=== PATIENT | male | born 1965 | race Caucasian/White ===

== ENCOUNTER 2020-09-25 17:51 | Inpatient (IN) | payer MEDICAID ==
[~2020-09-25] VITALS: Ht 167.6 cm; Wt 52.6 kg
[~2020-09-25 17:51] MED LIST: ASPI-394 PO; ATOR20TA50 PO; CAR3125T PO; CLO01T PO; FURO40TA4 PO; HYDR-531 PO; LORA-205 PO; MET50T PO; SACU1TAB PO
[2020-09-25] MEDS ORDERED: ASPirin 81 mg TAB PO ONE (18:15)
[2020-09-25 18:53] LABS: Basophils # (auto) 0 10 ^3/uL (0-0.2); Basophils % (auto) 0.5 % (0.0-2.0); Eosinophils # (auto) 0 10 ^3/uL (0-0.8); Eosinophils % (auto) 0.2 % (0.0-7.0); Hematocrit 31.5 % (41.0-53.0); Hemoglobin 10.6 g/dL (13.5-17.5); Lymphocytes # (auto) 1.4 10 ^3/uL (0.4-5.4); Lymphocytes % (auto) 14.4 % (10.0-50.0); Mean Corpuscular Hemoglobin 30.3 pg (28.0-32.0); Mean Corpuscular Hgb Conc. 33.6 g/dL (32.0-36.0); Monocytes % (auto) 10.5 % (0.0-12.0); Neutrophils # (auto) 7.3 10 ^3/uL (1.6-8.6); Neutrophils % (auto) 74.4 % (37.0-80.0); Nucleated Red Blood Cells % 0.2 %; Platelet Count (auto) 321 10^3/uL (140-450); Red Cell Distribution Width 18.2 % (11.8-14.3); White Blood Cell 9.9 10^3/uL (4.4-10.8)
[2020-09-25 19:23] LABS: Albumin 3.2 g/dL (3.4-5.0); Calcium 9.2 mg/dL (8.5-10.1); Potassium 4.7 mmol/L (3.5-5.1)
[2020-09-25 19:29] LABS: BUN/Creatinine Ratio 42.3; Bilirubin, Total 2.3 mg/dL (0.2-1.0); Total Protein 7.2 g/dL (6.4-8.2)
[2020-09-25] MEDS ORDERED: AZITHROMYCIN 500MG/ 250ML 250 ML IV ONE (21:30)
[2020-09-25] MEDS ORDERED: NITROGLYCERIN 0.4 MG SL TAB SL PRN (21:30)
[2020-09-25] MEDS ORDERED: MORPHINE SULF INJ 2 MG/ML SYRINGE 1ML IV PRN (21:30)
[2020-09-25] MEDS ORDERED: ONDANSETRON HCL 4 MG/2 ML VIAL IV PRN (21:30)
[2020-09-25] MEDS ORDERED: METOPROLOL TARTRATE 50 MG TAB PO SCH (22:00)
[2020-09-25] MEDS: FAMOTIDINE 20 MG TAB PO SCH (23:00)
[2020-09-25] MEDS ORDERED: FUROSEMIDE 20 MG/2 ML VIAL IV ONE (23:15)
[2020-09-25] MEDS: TEMAZEPAM 15 MG CAP PO PRN (23:36)
[2020-09-25] MEDS: SACUBITRIL-VALSARTAN 24mg/26mg TAB PO SCH (23:36)
[2020-09-25] MEDS: CARVEDILOL 3.125 MG TAB PO SCH (23:38)
[2020-09-25] MEDS: ATORVASTATIN 20 MG TAB PO SCH (23:38)
[2020-09-26] VITALS (88 sets, daily range): BP systolic 90–145; BP diastolic 55–94
[2020-09-26] MEDS ORDERED: cefTRIAXone 1GM/50ML D5W 50 ML IV ONE
[2020-09-26] MEDS ORDERED: NOREPINEPHRINE 8 MG/250ML KIT 250 ML IV ONE (00:29)
[2020-09-26] MEDS ORDERED: MIDAZOLAM DRIP 50 mg/50mL 50 ML IV ONE (00:29)
[2020-09-26] MEDS ORDERED: HEPARIN SODIUM (PORCINE) 5000 UNITS/ML 1ML VIAL IV ONE (00:45)
[2020-09-26] MEDS ORDERED: HEPARIN DRIP/D5W 100UNITS/ML 250 ML IV SCH (00:45)
[2020-09-26] MEDS: NOREPINEPHRINE 8 MG/250ML KIT 250 ML IV SCH (00:50)
[2020-09-26] MEDS: MIDAZOLAM DRIP 50 mg/50mL 50 ML IV SCH ×2 (00:58→20:38)
[2020-09-26 01:10] LABS: Mean Corpuscular Hemoglobin 29.3 pg (28.0-32.0)
[2020-09-26 01:12] LABS: Hematocrit 35.2 % (41.0-53.0); Hemoglobin 10.8 g/dL (13.5-17.5); Mean Corpuscular Hgb Conc. 30.7 g/dL (32.0-36.0); Mean Corpuscular Volume 95.4 fL (80.0-100.0); Platelet Count (auto) 315 10^3/uL (140-450); Red Blood Cells 3.69 10^6/uL (4.5-5.90); Red Cell Distribution Width 18.4 % (11.8-14.3); White Blood Cell 10.2 10^3/uL (4.4-10.8)
[2020-09-26 01:24] LABS: Basophils % (manual) 0 (0.0-2.0); Blast Cells 0; Eosinophils % (manual) 0 (0-7); Metamyelocytes % 0; Promyelocytes % 0; Reactive Lymphocytes 0
[2020-09-26 01:29] LABS: INR 2.79 (0.9-1.15); Partial Thromboplastin Time 33.5 sec (23.0-31.2)
[2020-09-26] MEDS: DOPamine 1600MCG/ML D5W 250 ML IV SCH (01:34)
[2020-09-26 03:42] LABS: Band Neutrophils % (manual) 8; Lymphocytes % (manual) 22 (10.0-50.0); Monocytes % (manual) 8 (0-12); Myelocytes % 1
[2020-09-26] MEDS: FUROSEMIDE 20 MG/2 ML VIAL IV SCH ×2 (05:57→17:45)
[2020-09-26 06:35] LABS: Potassium 3.5 mmol/L (3.5-5.1)
[2020-09-26 06:42] LABS: Albumin 3.1 g/dL (3.4-5.0); BUN/Creatinine Ratio 43.5; Bilirubin, Total 1.8 mg/dL (0.2-1.0); Calcium 8.7 mg/dL (8.5-10.1); Total Protein 7.3 g/dL (6.4-8.2)
[2020-09-26] MEDS: EPTIFIBATIDE DRIP(0.75MG/ML) 100 ML IV SCH ×2 (07:34→15:22)
[2020-09-26] MEDS ORDERED: APIX5TAB PO (07:59)
[2020-09-26] MEDS ORDERED: CARV3.1240 PO (07:59)
[2020-09-26] MEDS ORDERED: GABA300C10 PO (07:59)
[2020-09-26] MEDS ORDERED: POTA1080 PO (07:59)
[2020-09-26] MEDS: FAMOTIDINE 20 MG TAB PO SCH ×2 (10:00→22:00)
[2020-09-26] MEDS: CARVEDILOL 3.125 MG TAB PO SCH ×2 (10:00→22:00)
[2020-09-26] MEDS: SACUBITRIL-VALSARTAN 24mg/26mg TAB PO SCH ×2 (10:00→22:00)
[2020-09-26] MEDS ORDERED: ENOXAPARIN SOD 40 MG/0.4 ML SYRINGE SC SCH (10:00)
[2020-09-26 11:08] LABS: INR 2.02 (0.9-1.15); Partial Thromboplastin Time 35.6 sec (23.0-31.2)
[2020-09-26] MEDS ORDERED: EPINEPHrine HCL 1 MG/10 ML SYRG IV ONE (12:08)
[2020-09-26] MEDS ORDERED: SODIUM BICARBONATE 8.4% INJ 50ML SYRINGE IV ONE (12:08)
[2020-09-26] MEDS: POTASSIUM CHL 20MEQ/100ML 100 ML IV SCH ×2 (13:48→15:51)
[2020-09-26] MEDS ORDERED: DOXYCYCLINE 100MG/250ML 250 ML IV SCH (15:30)
[2020-09-26 18:10] LABS: Alcohol, Urine < 3.0 mg/dL (0-10); Amphetamine Screen, Urine NEGATIVE (NEGATIVE); Barbiturate Scree,Urine NEGATIVE (NEGATIVE); Benzodiazephine Screen, Urine POSITIVE (NEGATIVE); Cannabinoid Screen, Urine NEGATIVE (NEGATIVE); Cocaine Screen, Urine NEGATIVE (NEGATIVE); Phencyclidine Screen, Urine NEGATIVE (NEGATIVE)
[2020-09-26 18:18] LABS: Opiate Scree,Urine NEGATIVE (NEGATIVE)
[2020-09-26 18:34] LABS: Urine Bacteria FEW /hpf (None Seen); Urine Blood Negative /uL (Negative); Urine Hyaline Cast FEW /lpf (0 - 2); Urine Specific Gravity 1.016 (1.001-1.035); Urine Sperm PRESENT /hpf (None Seen); Urine WBC 4 /hpf (0 - 3)
[2020-09-26] MEDS: cefTRIAXone 1GM/50ML D5W 50 ML IV SCH (20:40)
[2020-09-26] MEDS: ATORVASTATIN 20 MG TAB PO SCH (22:00)
[2020-09-26] MEDS ORDERED: AZITHROMYCIN 500MG/ 250ML 250 ML IV SCH (22:00)
[2020-09-26] MEDS: ASPirin 81 mg TAB PO SCH (22:30)
[2020-09-26] MEDS: DOXYCYCLINE 100MG/250ML 250 ML IV SCH (22:30)
[2020-09-27] VITALS (96 sets, daily range): BP systolic 83–118; BP diastolic 58–88
[2020-09-27] MEDS: DOPamine 1600MCG/ML D5W 250 ML IV SCH ×2 (00:07→22:44)
[2020-09-27] MEDS: MIDAZOLAM DRIP 50 mg/50mL 50 ML IV SCH ×3 (00:30→22:21)
[2020-09-27] MEDS: NOREPINEPHRINE 8 MG/250ML KIT 250 ML IV SCH (00:45)
[2020-09-27 04:22] LABS: Basophils # (auto) 0.1 10 ^3/uL (0-0.2); Basophils % (auto) 0.4 % (0.0-2.0); Eosinophils # (auto) 0.1 10 ^3/uL (0-0.8); Eosinophils % (auto) 0.6 % (0.0-7.0); Hematocrit 35.9 % (41.0-53.0); Hemoglobin 11.8 g/dL (13.5-17.5); Lymphocytes # (auto) 0.8 10 ^3/uL (0.4-5.4); Lymphocytes % (auto) 6.5 % (10.0-50.0); Mean Corpuscular Hemoglobin 29.3 pg (28.0-32.0); Mean Corpuscular Hgb Conc. 32.8 g/dL (32.0-36.0); Mean Corpuscular Volume 89.3 fL (80.0-100.0); Monocytes # (auto) 1.3 10 ^3/uL (0-1.3); Monocytes % (auto) 10.8 % (0.0-12.0); Neutrophils # (auto) 10.1 10 ^3/uL (1.6-8.6); Neutrophils % (auto) 81.7 % (37.0-80.0); Platelet Count (auto) 345 10^3/uL (140-450); Red Blood Cells 4.02 10^6/uL (4.5-5.90); Red Cell Distribution Width 18.4 % (11.8-14.3); White Blood Cell 12.4 10^3/uL (4.4-10.8)
[2020-09-27 04:45] LABS: Potassium 3.5 mmol/L (3.5-5.1)
[2020-09-27 04:51] LABS: Albumin 2.5 g/dL (3.4-5.0); BUN/Creatinine Ratio 41.1; Bilirubin, Total 1.6 mg/dL (0.2-1.0); Calcium 8.3 mg/dL (8.5-10.1); Total Protein 6.4 g/dL (6.4-8.2)
[2020-09-27] MEDS: FUROSEMIDE 20 MG/2 ML VIAL IV SCH ×2 (06:06→18:00)
[2020-09-27] MEDS ORDERED: IODIXANOL 320MG/ML 100ML BTL IV ONE (08:09)
[2020-09-27] MEDS: DOXYCYCLINE 100MG/250ML 250 ML IV SCH ×2 (10:00→22:11)
[2020-09-27] MEDS: CARVEDILOL 3.125 MG TAB PO SCH ×2 (10:00→22:00)
[2020-09-27] MEDS: FAMOTIDINE 20 MG TAB PO SCH ×2 (10:45→22:12)
[2020-09-27] MEDS: SACUBITRIL-VALSARTAN 24mg/26mg TAB PO SCH ×2 (10:45→22:00)
[2020-09-27] MEDS ORDERED: LIDOCAINE 2%HCL (LOCAL ANESTH.) INJ 20ML MDV ONE (12:06)
[2020-09-27] MEDS ORDERED: IOHEXOL 350 MG/ML 100ML IJ ONE (12:06)
[2020-09-27] MEDS ORDERED: SODIUM CHL 0.9% 0 ML ONE (12:25)
[2020-09-27] MEDS ORDERED: ANGIOMAX 250 MG VIAL IV ONE (12:25)
[2020-09-27] MEDS: fentaNYL Drip 2500mCg/250mlNS 250 ML IV SCH (21:15)
[2020-09-27] MEDS: cefTRIAXone 1GM/50ML D5W 50 ML IV SCH (21:25)
[2020-09-27] MEDS: ASPirin 81 mg TAB PO SCH (22:11)
[2020-09-27] MEDS: ATORVASTATIN 20 MG TAB PO SCH (22:12)
[2020-09-28] VITALS (85 sets, daily range): BP systolic 66–182; BP diastolic 41–104
[2020-09-28] MEDS: NOREPINEPHRINE 8 MG/250ML KIT 250 ML IV SCH (00:45)
[2020-09-28] MEDS: MIDAZOLAM DRIP 50 mg/50mL 50 ML IV SCH (03:15)
[2020-09-28 04:09] LABS: Basophils # (auto) 0.1 10 ^3/uL (0-0.2); Basophils % (auto) 0.8 % (0.0-2.0); Eosinophils # (auto) 0.1 10 ^3/uL (0-0.8); Eosinophils % (auto) 1.1 % (0.0-7.0); Hemoglobin 13.5 g/dL (13.5-17.5); Mean Corpuscular Hemoglobin 29.4 pg (28.0-32.0); Mean Corpuscular Hgb Conc. 32.9 g/dL (32.0-36.0); Mean Corpuscular Volume 89.4 fL (80.0-100.0); Monocytes # (auto) 1.4 10 ^3/uL (0-1.3); Monocytes % (auto) 11.1 % (0.0-12.0); Neutrophils # (auto) 10.3 10 ^3/uL (1.6-8.6); Platelet Count (auto) 400 10^3/uL (140-450); Red Blood Cells 4.59 10^6/uL (4.5-5.90); Red Cell Distribution Width 18.3 % (11.8-14.3)
[2020-09-28 04:24] LABS: Albumin 2.5 g/dL (3.4-5.0); Calcium 8.3 mg/dL (8.5-10.1); Potassium 3.4 mmol/L (3.5-5.1)
[2020-09-28 04:27] LABS: BUN/Creatinine Ratio 35.4; Bilirubin, Total 1.2 mg/dL (0.2-1.0); Total Protein 6.8 g/dL (6.4-8.2)
[2020-09-28] MEDS: FUROSEMIDE 20 MG/2 ML VIAL IV SCH ×2 (06:05→17:50)
[2020-09-28 09:07] LABS: INR 1.17 (0.9-1.15); Partial Thromboplastin Time 26.2 sec (23.0-31.2)
[2020-09-28] MEDS: POTASSIUM CHL 20MEQ/100ML 100 ML IV SCH ×2 (09:09→11:18)
[2020-09-28] MEDS: FAMOTIDINE 20 MG TAB PO SCH ×2 (10:00→21:58)
[2020-09-28] MEDS: SACUBITRIL-VALSARTAN 24mg/26mg TAB PO SCH ×2 (10:00→21:58)
[2020-09-28] MEDS: CARVEDILOL 3.125 MG TAB PO SCH ×2 (10:00→21:57)
[2020-09-28] MEDS: DOXYCYCLINE 100MG/250ML 250 ML IV SCH ×2 (11:30→22:44)
[2020-09-28] MEDS ORDERED: LIDOCAINE 2%HCL (LOCAL ANESTH.) INJ 20ML MDV ONE (13:33)
[2020-09-28] MEDS ORDERED: IOHEXOL 350 MG/ML 100ML IJ ONE (13:33)
[2020-09-28] MEDS ORDERED: VANCOMYCIN HCL 1000 MG VL ONE (14:33)
[2020-09-28] MEDS ORDERED: VANCOMYCIN 1GM/250ML 250 ML IV ONE (14:33)
[2020-09-28] MEDS: fentaNYL Drip 2500mCg/250mlNS 250 ML IV SCH (21:00)
[2020-09-28] MEDS: cefTRIAXone 1GM/50ML D5W 50 ML IV SCH (21:55)
[2020-09-28] MEDS: AMIODARONE HCL 200 MG TAB PO SCH (21:57)
[2020-09-28] MEDS: ATORVASTATIN 20 MG TAB PO SCH (21:58)
[2020-09-29] VITALS (86 sets, daily range): BP systolic 74–124; BP diastolic 45–87
[2020-09-29] MEDS: MIDAZOLAM DRIP 50 mg/50mL 50 ML IV SCH ×3 (00:38→21:18)
[2020-09-29] MEDS: FUROSEMIDE 20 MG/2 ML VIAL IV SCH ×2 (06:13→20:30)
[2020-09-29] MEDS: AMIODARONE HCL 200 MG TAB PO SCH ×2 (10:00→21:14)
[2020-09-29] MEDS: DOXYCYCLINE 100MG/250ML 250 ML IV SCH ×2 (10:44→22:27)
[2020-09-29] MEDS: CARVEDILOL 3.125 MG TAB PO SCH ×2 (10:45→21:15)
[2020-09-29] MEDS: FAMOTIDINE 20 MG TAB PO SCH ×2 (10:46→21:16)
[2020-09-29] MEDS: ENOXAPARIN SOD 40 MG/0.4 ML SYRINGE SC SCH (10:46)
[2020-09-29] MEDS: SACUBITRIL-VALSARTAN 24mg/26mg TAB PO SCH ×2 (10:46→21:15)
[2020-09-29] MEDS: ACETAMINOPHEN 325 MG TAB PO PRN (16:56)
[2020-09-29] MEDS: fentaNYL Drip 2500mCg/250mlNS 250 ML IV SCH (21:00)
[2020-09-29] MEDS: cefTRIAXone 1GM/50ML D5W 50 ML IV SCH (21:14)
[2020-09-29] MEDS: ATORVASTATIN 20 MG TAB PO SCH (21:15)
[2020-09-30] VITALS (102 sets, daily range): BP systolic 80–132; BP diastolic 39–98
[2020-09-30] MEDS: MIDAZOLAM DRIP 50 mg/50mL 50 ML IV SCH (00:30)
[2020-09-30] MEDS: NOREPINEPHRINE 8 MG/250ML KIT 250 ML IV SCH ×2 (02:09→11:04)
[2020-09-30] MEDS: FUROSEMIDE 20 MG/2 ML VIAL IV SCH ×2 (06:27→18:29)
[2020-09-30] MEDS: ENOXAPARIN SOD 40 MG/0.4 ML SYRINGE SC SCH (08:58)
[2020-09-30] MEDS: SACUBITRIL-VALSARTAN 24mg/26mg TAB PO SCH ×2 (08:58→22:00)
[2020-09-30] MEDS: ACETAMINOPHEN 325 MG TAB PO PRN (08:59)
[2020-09-30] MEDS: CARVEDILOL 3.125 MG TAB PO SCH ×2 (09:01→23:00)
[2020-09-30] MEDS: FAMOTIDINE 20 MG TAB PO SCH ×2 (09:01→22:00)
[2020-09-30] MEDS: AMIODARONE HCL 200 MG TAB PO SCH ×2 (09:04→23:00)
[2020-09-30] MEDS: DOXYCYCLINE 100MG/250ML 250 ML IV SCH ×2 (09:04→22:00)
[2020-09-30 09:13] LABS: Basophils # (auto) 0.1 10 ^3/uL (0-0.2); Basophils % (auto) 0.9 % (0.0-2.0); Eosinophils # (auto) 0.3 10 ^3/uL (0-0.8); Eosinophils % (auto) 2.9 % (0.0-7.0); Hematocrit 37.8 % (41.0-53.0); Hemoglobin 12.1 g/dL (13.5-17.5); Lymphocytes # (auto) 0.7 10 ^3/uL (0.4-5.4); Lymphocytes % (auto) 6.1 % (10.0-50.0); Mean Corpuscular Hemoglobin 28.5 pg (28.0-32.0); Mean Corpuscular Hgb Conc. 31.9 g/dL (32.0-36.0); Mean Corpuscular Volume 89.4 fL (80.0-100.0); Monocytes # (auto) 1.2 10 ^3/uL (0-1.3); Monocytes % (auto) 10.4 % (0.0-12.0); Neutrophils # (auto) 9.5 10 ^3/uL (1.6-8.6); Neutrophils % (auto) 79.7 % (37.0-80.0); Nucleated Red Blood Cells % 0.1 %; Platelet Count (auto) 371 10^3/uL (140-450); Red Blood Cells 4.23 10^6/uL (4.5-5.90); Red Cell Distribution Width 18.4 % (11.8-14.3)
[2020-09-30 09:14] LABS: Albumin 2.4 g/dL (3.4-5.0); Calcium 8.3 mg/dL (8.5-10.1); Magnesium 1.6 mg/dL (1.6-2.6); Potassium 3.9 mmol/L (3.5-5.1)
[2020-09-30 09:17] LABS: BUN/Creatinine Ratio 35.1; Total Protein 6.8 g/dL (6.4-8.2)
[2020-09-30] MEDS: DOPamine 1600MCG/ML D5W 250 ML IV SCH (10:45)
[2020-09-30] MEDS ORDERED: DOPamine 1600MCG/ML D5W 250 ML IV ONE (10:56)
[2020-09-30] MEDS: MAGNESIUM SULFATE 1GM/100ML 100 ML IV SCH ×3 (11:08→14:18)
[2020-09-30] MEDS: fentaNYL Drip 2500mCg/250mlNS 250 ML IV SCH (21:00)
[2020-09-30] MEDS: cefTRIAXone 1GM/50ML D5W 50 ML IV SCH (21:00)
[2020-09-30] MEDS: ATORVASTATIN 20 MG TAB PO SCH (22:00)
[2020-10-01] VITALS (97 sets, daily range): BP systolic 66–125; BP diastolic 43–95
[2020-10-01] MEDS: DOXYCYCLINE 100MG/250ML 250 ML IV SCH
[2020-10-01 04:36] LABS: Basophils # (auto) 0.1 10 ^3/uL (0-0.2); Basophils % (auto) 0.9 % (0.0-2.0); Eosinophils # (auto) 0.3 10 ^3/uL (0-0.8); Hematocrit 41.1 % (41.0-53.0); Hemoglobin 13.6 g/dL (13.5-17.5); Lymphocytes # (auto) 1.3 10 ^3/uL (0.4-5.4); Lymphocytes % (auto) 10.9 % (10.0-50.0); Mean Corpuscular Hemoglobin 29.6 pg (28.0-32.0); Mean Corpuscular Hgb Conc. 33.1 g/dL (32.0-36.0); Mean Corpuscular Volume 89.3 fL (80.0-100.0); Monocytes # (auto) 1.1 10 ^3/uL (0-1.3); Monocytes % (auto) 9.2 % (0.0-12.0); Neutrophils # (auto) 8.8 10 ^3/uL (1.6-8.6); Nucleated Red Blood Cells % 0.1 %; Platelet Count (auto) 328 10^3/uL (140-450); Red Blood Cells 4.61 10^6/uL (4.5-5.90); Red Cell Distribution Width 18.2 % (11.8-14.3); White Blood Cell 11.5 10^3/uL (4.4-10.8)
[2020-10-01 04:55] LABS: BUN/Creatinine Ratio 30.4; Calcium 8.8 mg/dL (8.5-10.1); Magnesium 2.2 mg/dL (1.6-2.6); Potassium 3.7 mmol/L (3.5-5.1)
[2020-10-01] MEDS: CARVEDILOL 3.125 MG TAB PO SCH (05:43)
[2020-10-01] MEDS: FUROSEMIDE 20 MG/2 ML VIAL IV SCH ×2 (06:00→18:00)
[2020-10-01] MEDS: FAMOTIDINE 20 MG TAB PO SCH ×2 (10:00→22:00)
[2020-10-01] MEDS: ASPirin 81 mg TAB PO SCH (10:00)
[2020-10-01] MEDS: ENOXAPARIN SOD 40 MG/0.4 ML SYRINGE SC SCH (10:00)
[2020-10-01] MEDS: AMIODARONE HCL 200 MG TAB PO SCH ×2 (10:00→22:00)
[2020-10-01] MEDS: NOREPINEPHRINE 8 MG/250ML KIT 250 ML IV SCH (11:41)
[2020-10-01] MEDS: MIDAZOLAM DRIP 50 mg/50mL 50 ML IV SCH (11:42)
[2020-10-01] MEDS ORDERED: ceFAZolin 1GM/50ML 50 ML IV ONE (12:45)
[2020-10-01] MEDS ORDERED: levoFLOXacin 750MG 150 ML IV ONE (12:45)
[2020-10-01] MEDS ORDERED: Jevity 1.2 Cal/Fiber 1 Liter GT SCH (14:45)
[2020-10-01] MEDS: DOPamine 1600MCG/ML D5W 250 ML IV SCH (16:39)
[2020-10-01] MEDS: fentaNYL Drip 2500mCg/250mlNS 250 ML IV SCH (21:00)
[2020-10-01] MEDS: ceFAZolin 1GM/50ML 50 ML IV SCH (22:00)
[2020-10-01] MEDS: ATORVASTATIN 20 MG TAB PO SCH (22:00)
[2020-10-02] VITALS (92 sets, daily range): BP systolic 71–141; BP diastolic 46–93
[2020-10-02] MEDS: MIDAZOLAM DRIP 50 mg/50mL 50 ML IV SCH (00:45)
[2020-10-02] MEDS: ceFAZolin 1GM/50ML 50 ML IV SCH ×3 (06:00→21:41)
[2020-10-02] MEDS: FUROSEMIDE 20 MG/2 ML VIAL IV SCH ×2 (06:00→15:18)
[2020-10-02 09:30] LABS: INR 1.15 (0.9-1.15)
[2020-10-02] MEDS: FAMOTIDINE 20 MG TAB PO SCH ×2 (09:47→21:41)
[2020-10-02] MEDS: AMIODARONE HCL 200 MG TAB PO SCH ×2 (09:47→21:41)
[2020-10-02] MEDS: ASPirin 81 mg TAB PO SCH (09:47)
[2020-10-02] MEDS: ENOXAPARIN SOD 40 MG/0.4 ML SYRINGE SC SCH (09:47)
[2020-10-02] MEDS: NOREPINEPHRINE 8 MG/250ML KIT 250 ML IV SCH (09:48)
[2020-10-02] MEDS ORDERED: levoFLOXacin 750MG 150 ML IV SCH (10:00)
[2020-10-02] MEDS: DOPamine 1600MCG/ML D5W 250 ML IV SCH (14:38)
[2020-10-02] MEDS: fentaNYL Drip 2500mCg/250mlNS 250 ML IV SCH (20:53)
[2020-10-02] MEDS: ATORVASTATIN 20 MG TAB PO SCH (21:41)
[2020-10-03] VITALS (102 sets, daily range): BP systolic 78–120; BP diastolic 40–84
[2020-10-03] MEDS: MIDAZOLAM DRIP 50 mg/50mL 50 ML IV SCH ×2 (01:02→13:00)
[2020-10-03 04:20] LABS: Basophils # (auto) 0.1 10 ^3/uL (0-0.2); Basophils % (auto) 0.6 % (0.0-2.0); Eosinophils # (auto) 0.4 10 ^3/uL (0-0.8); Eosinophils % (auto) 3.7 % (0.0-7.0); Hematocrit 37.7 % (41.0-53.0); Hemoglobin 12.5 g/dL (13.5-17.5); Lymphocytes # (auto) 1.1 10 ^3/uL (0.4-5.4); Lymphocytes % (auto) 11.1 % (10.0-50.0); Mean Corpuscular Hemoglobin 29.2 pg (28.0-32.0); Mean Corpuscular Hgb Conc. 33.2 g/dL (32.0-36.0); Mean Corpuscular Volume 87.8 fL (80.0-100.0); Monocytes # (auto) 0.8 10 ^3/uL (0-1.3); Monocytes % (auto) 8.2 % (0.0-12.0); Neutrophils # (auto) 7.5 10 ^3/uL (1.6-8.6); Neutrophils % (auto) 76.4 % (37.0-80.0); Nucleated Red Blood Cells % 0.1 %; Platelet Count (auto) 287 10^3/uL (140-450); Red Blood Cells 4.29 10^6/uL (4.5-5.90); Red Cell Distribution Width 18.1 % (11.8-14.3); White Blood Cell 9.8 10^3/uL (4.4-10.8)
[2020-10-03 04:36] LABS: INR 1.13 (0.9-1.15); Partial Thromboplastin Time 28.8 sec (23.0-31.2)
[2020-10-03 04:46] LABS: BUN/Creatinine Ratio 34.1; Calcium 8.4 mg/dL (8.5-10.1)
[2020-10-03] MEDS: ceFAZolin 1GM/50ML 50 ML IV SCH ×3 (05:35→22:07)
[2020-10-03] MEDS: FUROSEMIDE 20 MG/2 ML VIAL IV SCH ×2 (05:36→17:48)
[2020-10-03] MEDS: NOREPINEPHRINE 8 MG/250ML KIT 250 ML IV SCH ×2 (07:22→18:45)
[2020-10-03] MEDS: AMIODARONE HCL 200 MG TAB PO SCH ×2 (09:32→22:07)
[2020-10-03] MEDS: ENOXAPARIN SOD 40 MG/0.4 ML SYRINGE SC SCH (09:32)
[2020-10-03] MEDS: FAMOTIDINE 20 MG TAB PO SCH ×2 (09:32→22:07)
[2020-10-03] MEDS: ASPirin 81 mg TAB PO SCH (09:32)
[2020-10-03] MEDS: DOPamine 1600MCG/ML D5W 250 ML IV SCH (10:00)
[2020-10-03] MEDS: fentaNYL Drip 2500mCg/250mlNS 250 ML IV SCH (17:08)
[2020-10-03] MEDS: ATORVASTATIN 20 MG TAB PO SCH (22:07)
[2020-10-04] VITALS (92 sets, daily range): BP systolic 81–124; BP diastolic 50–86
[2020-10-04 04:13] LABS: Basophils # (auto) 0.1 10 ^3/uL (0-0.2); Basophils % (auto) 0.8 % (0.0-2.0); Eosinophils # (auto) 0.3 10 ^3/uL (0-0.8); Eosinophils % (auto) 3.7 % (0.0-7.0); Hematocrit 34.9 % (41.0-53.0); Hemoglobin 11.5 g/dL (13.5-17.5); Lymphocytes # (auto) 1.1 10 ^3/uL (0.4-5.4); Mean Corpuscular Hemoglobin 29.1 pg (28.0-32.0); Mean Corpuscular Volume 88.2 fL (80.0-100.0); Monocytes # (auto) 0.7 10 ^3/uL (0-1.3); Monocytes % (auto) 7.3 % (0.0-12.0); Neutrophils # (auto) 6.9 10 ^3/uL (1.6-8.6); Neutrophils % (auto) 76.2 % (37.0-80.0); Nucleated Red Blood Cells % 0.1 %; Platelet Count (auto) 238 10^3/uL (140-450); Red Blood Cells 3.96 10^6/uL (4.5-5.90); Red Cell Distribution Width 17.9 % (11.8-14.3); White Blood Cell 9.1 10^3/uL (4.4-10.8)
[2020-10-04 04:31] LABS: BUN/Creatinine Ratio 28.9; Calcium 8.8 mg/dL (8.5-10.1); Potassium 4.1 mmol/L (3.5-5.1)
[2020-10-04] MEDS: FUROSEMIDE 20 MG/2 ML VIAL IV SCH ×2 (06:13→17:54)
[2020-10-04] MEDS: ceFAZolin 1GM/50ML 50 ML IV SCH ×3 (06:13→21:24)
[2020-10-04] MEDS: AMIODARONE HCL 200 MG TAB PO SCH ×2 (10:00→21:24)
[2020-10-04] MEDS: ASPirin 81 mg TAB PO SCH (10:00)
[2020-10-04] MEDS: FAMOTIDINE 20 MG TAB PO SCH ×2 (10:00→21:23)
[2020-10-04] MEDS: ENOXAPARIN SOD 40 MG/0.4 ML SYRINGE SC SCH (10:05)
[2020-10-04] MEDS: DOPamine 1600MCG/ML D5W 250 ML IV SCH (10:45)
[2020-10-04] MEDS: fentaNYL Drip 2500mCg/250mlNS 250 ML IV SCH (17:54)
[2020-10-04] MEDS: ATORVASTATIN 20 MG TAB PO SCH (21:23)
[2020-10-04] MEDS: TEMAZEPAM 15 MG CAP PO PRN (21:40)
[2020-10-05] VITALS (13 sets, daily range): BP systolic 80–120; BP diastolic 54–84
[2020-10-05] MEDS: ceFAZolin 1GM/50ML 50 ML IV SCH ×3 (06:28→22:03)
[2020-10-05] MEDS: FUROSEMIDE 20 MG/2 ML VIAL IV SCH ×2 (06:28→17:48)
[2020-10-05] MEDS: ASPirin 81 mg TAB PO SCH (09:51)
[2020-10-05] MEDS: FAMOTIDINE 20 MG TAB PO SCH ×2 (09:52→22:04)
[2020-10-05] MEDS: ENOXAPARIN SOD 40 MG/0.4 ML SYRINGE SC SCH (09:52)
[2020-10-05] MEDS: AMIODARONE HCL 200 MG TAB PO SCH ×2 (09:52→22:03)
[2020-10-05] MEDS ORDERED: MAGNESIUM SULFATE 1GM/100ML 100 ML IV ONE (11:00)
[2020-10-05] MEDS ORDERED: LISINOPRIL 5 MG TAB PO ONE (11:00)
[2020-10-05] MEDS ORDERED: CARVEDILOL 3.125 MG TAB PO ONE (11:00)
[2020-10-05] MEDS: ATORVASTATIN 20 MG TAB PO SCH (22:03)
[2020-10-05] MEDS: CARVEDILOL 3.125 MG TAB PO SCH (22:03)
[2020-10-05] MEDS: TEMAZEPAM 15 MG CAP PO PRN (22:04)
[2020-10-06 05:25] VITALS: BP 110/69
[2020-10-06] MEDS: ceFAZolin 1GM/50ML 50 ML IV SCH ×3 (06:02→20:44)
[2020-10-06] MEDS: FUROSEMIDE 20 MG/2 ML VIAL IV SCH ×3 (06:02→18:40)
[2020-10-06] MEDS: ASPirin 81 mg TAB PO SCH (08:53)
[2020-10-06] MEDS: AMIODARONE HCL 200 MG TAB PO SCH ×2 (08:54→20:44)
[2020-10-06] MEDS: CARVEDILOL 3.125 MG TAB PO SCH ×2 (08:55→20:43)
[2020-10-06] MEDS: MAGNESIUM OXIDE 400 MG TAB PO SCH ×2 (08:55→20:45)
[2020-10-06] MEDS: FAMOTIDINE 20 MG TAB PO SCH ×2 (08:55→20:45)
[2020-10-06] MEDS: LISINOPRIL 5 MG TAB PO SCH (08:56)
[2020-10-06] MEDS: ENOXAPARIN SOD 40 MG/0.4 ML SYRINGE SC SCH (08:56)
[2020-10-06 09:00] VITALS: BP 111/74
[2020-10-06] MEDS: ACETAMINOPHEN 325 MG TAB PO PRN ×2 (10:54→20:46)
[2020-10-06 13:00] VITALS: BP 93/65
[2020-10-06 17:00] VITALS: BP 101/71
[2020-10-06] MEDS: ATORVASTATIN 20 MG TAB PO SCH (20:45)
[2020-10-06] MEDS: TEMAZEPAM 15 MG CAP PO PRN (20:45)
[2020-10-06 23:05] VITALS: BP 96/60
[2020-10-07 05:00] VITALS: BP 93/62
[2020-10-07] MEDS: FUROSEMIDE 20 MG/2 ML VIAL IV SCH (06:28)
[2020-10-07] MEDS: ceFAZolin 1GM/50ML 50 ML IV SCH ×2 (06:28→14:00)
[2020-10-07] MEDS: ACETAMINOPHEN 325 MG TAB PO PRN (06:35)
[2020-10-07 09:00] VITALS: BP 118/81
[2020-10-07 09:26] VITALS: BP 118/81
[2020-10-07] MEDS: ASPirin 81 mg TAB PO SCH (09:40)
[2020-10-07] MEDS: CARVEDILOL 3.125 MG TAB PO SCH (09:40)
[2020-10-07] MEDS: AMIODARONE HCL 200 MG TAB PO SCH (09:40)
[2020-10-07] MEDS: FAMOTIDINE 20 MG TAB PO SCH (09:41)
[2020-10-07] MEDS: LISINOPRIL 5 MG TAB PO SCH (09:41)
[2020-10-07] MEDS: MAGNESIUM OXIDE 400 MG TAB PO SCH (09:41)
[2020-10-07] MEDS: ENOXAPARIN SOD 40 MG/0.4 ML SYRINGE SC SCH (09:41)
[2020-10-07 13:00] VITALS: BP 107/72
[2020-10-07 17:00] VITALS: BP 115/78
== END 2020-10-07 18:00 | DRG 161 ==
LOC: ER 17:51 → EDBD 17:51 → TELE 21:30 → ICU WEST 09-26 03:28 → TELE-EAST 10-05 08:47
PROVIDERS: ADMIT Nurse Practitioner; ATTEND Family Medicine
PROC: 02HV33Z Insertion of Infusion Device into Superior Vena Cava, Percutaneous Approach (ICD-10-PCS; 2020-09-25)
PROC: 5A1955Z Respiratory Ventilation, Greater than 96 Consecutive Hours (ICD-10-PCS; 2020-09-25)
PROC: 5A12012 Performance of Cardiac Output, Single, Manual (ICD-10-PCS; 2020-09-25)
PROC: 0BH17EZ Insertion of Endotracheal Airway into Trachea, Via Natural or Artificial Opening (ICD-10-PCS; 2020-09-25)
PROC: 06HY33Z Insertion of Infusion Device into Lower Vein, Percutaneous Approach (ICD-10-PCS; 2020-09-25)
PROC: 4A023N7 Measurement of Cardiac Sampling and Pressure, Left Heart, Percutaneous Approach (ICD-10-PCS; principal; 2020-09-27)
PROC: 0JH608Z Insertion of Defibrillator Generator into Chest Subcutaneous Tissue and Fascia, Open Approach (ICD-10-PCS; 2020-09-27)
PROC: B2111ZZ Fluoroscopy of Multiple Coronary Arteries using Low Osmolar Contrast (ICD-10-PCS; 2020-09-27)
PROC: B2151ZZ Fluoroscopy of Left Heart using Low Osmolar Contrast (ICD-10-PCS; 2020-09-27)
PROC: 02H63KZ Insertion of Defibrillator Lead into Right Atrium, Percutaneous Approach (ICD-10-PCS; 2020-09-28)
PROC: 02HK3KZ Insertion of Defibrillator Lead into Right Ventricle, Percutaneous Approach (ICD-10-PCS; 2020-09-28)
DX: I21.4 Non-ST elevation (NSTEMI) myocardial infarction (principal); I46.9 Cardiac arrest, cause unspecified; J15.211 Pneumonia due to Methicillin susceptible Staphylococcus aureus; J96.00 Acute respiratory failure, unspecified whether with hypoxia or hypercapnia; G93.1 Anoxic brain damage, not elsewhere classified; G93.41 Metabolic encephalopathy; D68.9 Coagulation defect, unspecified; J18.9 Pneumonia, unspecified organism; E44.0 Moderate protein-calorie malnutrition; I50.23 Acute on chronic systolic (congestive) heart failure; N17.9 Acute kidney failure, unspecified; I25.5 Ischemic cardiomyopathy; J98.11 Atelectasis; E83.41 Hypermagnesemia; F41.9 Anxiety disorder, unspecified; E78.00 Pure hypercholesterolemia, unspecified; J44.9 Chronic obstructive pulmonary disease, unspecified; I42.8 Other cardiomyopathies; F15.90 Other stimulant use, unspecified, uncomplicated; I95.9 Hypotension, unspecified; Z83.49 Family history of other endocrine, nutritional and metabolic diseases; Z88.8 Allergy status to other drugs, medicaments and biological substances; Z79.899 Other long term (current) drug therapy; Z79.891 Long term (current) use of opiate analgesic; Z79.01 Long term (current) use of anticoagulants; Z79.82 Long term (current) use of aspirin; Z95.5 Presence of coronary angioplasty implant and graft; Z86.73 Personal history of transient ischemic attack (TIA), and cerebral infarction without residual deficits; Z87.891 Personal history of nicotine dependence; Z95.0 Presence of cardiac pacemaker
CPT/HCPCS: 36415; 36600; 70450; 71045; 80048; 80053; 80307; 81001; 82805; 83735; 83880; 84484; 85007; 85025; 85027; 85049; 85610; 85730; 87070; 87077; 87081; 87186; 87205; 87426; 93005; 93306; 94002; 94003; 94640; 95819; 96365; 96375; 97110; 97116; 97530; 99152; 99153; C1751; G0378; J0690; J0696; J2250; J2405; J3480; J3490; J7060; Q9967